=== PATIENT | male | born 1990 | race Caucasian/White ===

== ENCOUNTER 2018-02-19 21:40 | Emergency (ER) | payer SELFPAY ==
[2018-02-19] MEDS ORDERED: fentaNYL CITRATE/PF 100 MCG/ 2ML AMP IVP STA (22:00)
[2018-02-19] MEDS ORDERED: ONDANSETRON HCL/PF 4 MG/ 2ML VIAL IVP ONE (22:01)
[2018-02-19] MEDS ORDERED: 0.9 % SODIUM CHLORIDE 1,000 ML IV ONE (22:05)
--- NOTE | 2018-02-19 22:17 | ED Physician Documentation ---
Abdominal Pain - HPI Stated Complaint: RUQ pain tonight/N-V since Chief Complaint: Abdominal Pain Additonal Information: Intro self as DIRECTOR OF CONTRACTS. Pt presents to the ED c/o RUQ abd pain that started today and n/v/d that started 2 days ago pt reports the pain as 10/10, non radiating, pressure. pt denies having hx of Hepatitis, pancreatitis, etoh, or new medication/substance use. 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 pt denies current chest pain, dyspnea, syncope/near syncope, headache, dizziness, visual disturbances, fever, rash, sick contacts, dysuria, trauma. melena or hematochezia, change in bladder function. anxiety or depression. ROS Negative unless otherwise specified. Onset: days ago (1) Duration: constant, worse Timing: still present Context: denies: out of country travel, bad food, recent trauma Severity: severe Quality: other (pressure) Associated Symptoms: chills, nausea, vomiting, diarrhea, sweating, loss of appetite. denies: coffee ground emesis, grossly bloody stools, chest pain Relieved by: nothing - ROS CONST: other (abdominal pain ) GI/: none CVS/RESP: denies: shortness of breath, cough EYES/ENT: none MS/SKIN/LYMPH: none NEURO/PSYCH: none - SOCIAL HX Smoking History: non-smoker Alcohol Use: none - FAMILY HX Family History: other (HTN) - PAST HX Past History: other ([place] disease) Ischemic Bowel Risk Factors: none Other History: none Surgeries/Procedures: none Home Medications: Ambulatory Orders Medication Instructions Recorded NK 04/07/14 Allergies/Adverse Reactions: Allergies Allergy/AdvReac Type Severity Reaction Status Date / Time atomoxetine HCl AdvReac Mild Abdominal Verified 02/19/18 21:54 [From Strattera] Pain - VITAL SIGNS Vital Signs: Vital Signs Temp Pulse Resp BP Pulse Ox 97.6 F 90 20 155/101 100 02/19/18 21:41 02/19/18 21:41 02/19/18 21:41 02/19/18 21:41 02/20/18 01:30 - REVIEWED ASSESSMENTS Nursing Assessment Reviewed: Yes Vitals Reviewed: Yes Progress - Progress Progress: 1120- pt reports pain 6/10 after dilaudid 1 mg. VSS. awaiting labs for disposition. 0045- CBC not available at this facility. Pt reports pain 07/24. VSS. 0130- Consulted Dr. Galaviz. agrees with plan of care and transfer. - Consult/PCP Time Called: 13:38 Consult/PCP: Dr Luna ED [facility] Consult Reason/Comments: Accepted pt for transfer via [facility] ED Results Lab/Radiology - Lab Results Lab Results: Lab Results 02/19/18 02/19/18 22:12 22:12 WBC Comment Pending RBC Pending Hemoglobin (Send Out) Pending Hct (Send Out) Pending MCV (Send Out) Pending MCH Pending MCHC (Send Out) Pending RDW Coeff of Loyda Pending Plt Count Pending Absolute Lymphs (auto) Pending Absolute Monos (auto) Pending Absolute Basos (auto) Pending CBC Comment Test not performed Neutrophils % Pending Absolute Neutrophils Pending Lymphocytes Pending Monocytes Pending Absolute Eosinophils Pending Basophilia % Pending Eosinophil Count Pending Sodium 137 mmol/L mmol/L (136-145) Potassium 3.6 mmol/L mmol/L (3.5-5.1) Chloride 95 mmol/L L mmol/L (98-107) Carbon Dioxide 31 mmol/L H mmol/L (22-30) BUN 11 mg/dL mg/dL (9-20) Creatinine 1.10 mg/dL mg/dL (0.66-1.25) Estimated Creat Clear 142 Est GFR ( Amer) > 60 (60 - ) Est GFR (Non-Af Amer) > 60 (60 - ) Glucose 118 mg/dL H mg/dL (74-106) Calcium 8.9 mg/dL mg/dL (8.4-10.2) Total Bilirubin 10.5 mg/dL H mg/dL (0.2-1.3) AST 711 U/L H U/L (15-46) ALT 907 U/L H U/L (13-69) Alkaline Phosphatase 140 U/L H U/L (38-126) Total Protein 8.9 g/dL H g/dL (6.3-8.2) Albumin 4.6 g/dL g/dL (3.5-5.0) Lipase 140 U/L U/L (23-300) - Radiology Radiology Impressions: CT abdomen and pelvis with contrast Clinical history: Vomiting for 2 days. Severe right upper quadrant abdominal pain. Contrast administered: 96 mL of Omnipaque 300. Technique: CT of the abdomen and pelvis is performed with intravenous infusion of contrast. Sagittal and coronal reconstructions were performed by the technologist. Findings: Visualized lung bases are clear. The liver is diffusely hypodense consistent with hepatic steatosis. There is a large gallstone in the gallbladder neck, but no gallbladder wall thickening or pericholecystic fluid. The spleen demonstrates normal attenuation without focal defect. Common bile duct is distended measuring 13 mm in diameter. There are intraductal calcifications distally at the level of pancreatic head consistent with common duct stones. The largest stone measures 1.4 cm in length and 7 mm in diameter. There is no significant intrahepatic ductal dilatation. There is no pancreatic ductal dilatation. The kidneys demonstrate symmetric enhancement. There is no retroperitoneal mass or significant adenopathy. The appendix is visualized and is within normal limits. Bladder is unremarkable. Impression: 1. Choledocholithiasis with distension of the common bile duct. 2. Cholelithiasis. 3. Hepatic steatosis. - Orders Orders: ED Orders Category Date Time Status Continuous Pulse Oximetry Q30M Care 02/19/18 22:[address] IV Lock 1T Care 02/19/18 22:[address] ABD & PELVIS W/ CON Stat Exams 02/19/18 Completed CBC REF Stat Lab 02/19/18 22:12 Results CBC/PLATELET/DIFF Stat Lab 02/19/18 22:12 Received CMP Routine Lab 02/19/18 22:12 Completed LIPASE Stat Lab 02/19/18 22:12 Completed UA W/MICRO IF INDICATED Routine Lab 02/19/18 Uncollected 0.9 % Sodium Chloride [Normal Saline] 1,000 ml Med 02/19/18 22:05 Discontinued IV Q1H HYDROmorphone HCL/PF [Dilaudid] Med 02/19/18 22:56 Discontinued 1 mg IVP NOW ONE HYDROmorphone HCL/PF [Dilaudid] Med 02/19/18 23:02 Discontinued 1 mg IVP NOW ONE Ondansetron HCl/Pf [Zofran 4 mg/2 ml] Med 02/19/18 22:01 Discontinued 4 mg IVP NOW ONE fentaNYL CITRATE/PF [Duragesic] Med 02/19/18 22:00 Discontinued 100 mcg IVP NOW STA Abdominal Pain Physical Exam - Physical Exam General Appearance: moderate distress EENT: no signs of dehydration NECK: normal inspection. No: lymphadenopathy RESPIRATORY: no resp distress, chest non-tender, breath sounds normal. No: wheezes, rales, rhonchi CVS: reg rate & rhythm, heart sounds normal, equal pulses, no murmur, no gallop ABDOMEN: soft, normal bowel sounds, tenderness (epigastric/RUQ tenderness. ), McBurney's point tenderne, guarding. No: psoas, obturator sign, rebound, distended, Rovsing's sign BACK: normal inspection SKIN: warm/dry EXTREMITIES: non-tender, normal range of motion, no evidence of injury NEURO: oriented X3, motor nml, sensation nml Vital Signs: Vital Signs Temp Pulse Resp BP Pulse Ox 97.6 F 90 20 155/101 100 02/19/18 21:41 02/19/18 21:41 02/19/18 21:41 02/19/18 21:41 02/20/18 01:30 Discharge Clincal Impression: Choledocholithiasis with acute cholecystitis with obstruction Abdominal pain Qualifiers: Abdominal location: right upper quadrant Qualified Code(s): R10.11 - Right upper quadrant pain Condition: Good Disposition: 02 XFER SHT-TRM HOSP Decision to Admit: NO Date of Decison to Admit: 02/20/18 Decision Time: 01:57
[2018-02-19 22:30] LABS: eGFR (Non-African) > 60
[2018-02-19] MEDS ORDERED: HYDROmorphone HCL/PF 1 MG/ML DISP.SYRIN IVP ONE (22:56)
[2018-02-19] MEDS ORDERED: HYDROmorphone HCL/PF 2 MG/ML DISP.SYRIN IVP ONE (23:02)
--- NOTE | 2018-02-19 23:17 | Diagnostic Imaging Report ---
ALIVIA COLLAZO [facility] [address] [facility].[address] [address] Report Submission Date: Feb 19, 2018 11:11:23 PM CDT Patient Study Name: NANCY COLEMAN Date: Feb 19, 2018 10:47:13 PM CDT Modality Type: CT Gender: M Description: CT ABD PELVIS W/ CON : 90 Institution: [facility] Physician: ALIVIA COLLAZO CT abdomen and pelvis with contrast Clinical history: Vomiting for 2 days. Severe right upper quadrant abdominal pain. Contrast administered: 96 mL of Omnipaque 300. Technique: CT of the abdomen and pelvis is performed with intravenous infusion of contrast. Sagittal and coronal reconstructions were performed by the technologist. Findings: Visualized lung bases are clear. The liver is diffusely hypodense consistent with hepatic steatosis. There is a large gallstone in the gallbladder neck, but no gallbladder wall thickening or pericholecystic fluid. The spleen demonstrates normal attenuation without focal defect. Common bile duct is distended measuring 13 mm in diameter. There are intraductal calcifications distally at the level of pancreatic head consistent with common duct stones. The largest stone measures 1.4 cm in length and 7 mm in diameter. There is no significant intrahepatic ductal dilatation. There is no pancreatic ductal dilatation. The kidneys demonstrate symmetric enhancement. There is no retroperitoneal mass or significant adenopathy. The appendix is visualized and is within normal limits. Bladder is unremarkable. Impression: 1. Choledocholithiasis with distension of the common bile duct. 2. Cholelithiasis. 3. Hepatic steatosis. Electronically signed on Feb 19, 2018 11:11:23 PM CDT by: Leroy CABAN
[2018-02-20 02:40] VITALS: BP 133/82
[2018-02-21 13:26] LABS: MCH. 30.8; MCV 86.6; PLATELET COUNT 222
[2018-02-21 13:28] LABS: LYMPH ABS # 1.3.; MONOCYTE ABS # 0.5
== END 2018-02-20 02:28 | disposition short-term general hospital (02) ==
LOC: ED 21:40
DX: K80.01 Calculus of gallbladder with acute cholecystitis with obstruction (principal); R10.11 Right upper quadrant pain
CPT/HCPCS: 74177; 80053; 83690; 85025; J1170; J2405; J3010; J7030; 96365; 96375; 99285; Q9967; S1016